=== PATIENT | female | born 1945 | race Caucasian/White ===

== ENCOUNTER → 2016-11-18 | Outpatient (CLI) | payer OTHER ==
[~2016-11-18] MED LIST: ACID REDUCER150 MG PO; AMBIEN CR6.25 MG PO; AMBIEN5 MG PO; AMLODIPINE BESY10 MG PO; ANTACID650 MG PO; ANTIVERT25 MG PO; APLISOL5 TUB UNIT ID; ATIVAN1 MG PO; Ativan PO; BUDEPRION XL150 MG PO; BYSTOLIC10 MG PO; BYSTOLIC5 MG PO; CALCITRIOL0.25 MCG PO; CALCIUM ACETAT667 MG PO; CARDURA2 M1 PO; CATAPRES0.2 MG PO; CEFTIN250 MG PO; CELEXA40 MG PO; CITALOPRAM HBR40 M1 PO; CLONAZEPAM0.25 MG PO; COLACE100 MG PO; CONSTULOSE10 GM/15 M PO; CORTIZONE-10 PL57 GM TP; CORTIZONE-1028 GM TP; COUMADIN1 MG PO; CRESTOR20 MG PO; Cardura PO; DELFLEX W/1.53000 ML PD; DICYCLOMINE HCL20 MG PO; DUONEB3 ML IH; EDLUAR5 MG SL; ELAVIL25 MG PO; ESCITALOPRAM OX10 MG PO; FLAGYL500 MG PO; FLEET MINERAL133 ML PR; FLORANEX GRANU1 EACH PO; FLORASTOR250 MG PO; FOLBEE PLUS TABL5 M1 PO; FOLBEE PLUS TABL5 MG PO; GABAPENTIN100 MG PO; GABAPENTIN300 MG PO; GEMFIBROZIL600 MG; GEMFIBROZIL600 MG PO; GENTAMICIN SULF30 GM TP; HEPARIN LO IV; HYDRALAZINE HC100 M1 PO; K-DUR20 MEQ PO; KEFLEX500 MG PO; KLOR-CON 1010 ME1 PO; LASIX40 MG PO; LEVAQUIN500 MG PO; LEVOFLOXACIN250 MG PO; LEVOFLOXACIN500 MG PO; LIDOCAINE700 MG TD; LISINOPRIL20 MG PO; LO-DOSE ASPIRIN81 M2 PO; LORAZEPAM0.5 MG PO; LORAZEPAM1 MG PO; LOW DOSE ASPIRI81 M1 PO; LYRICA100 MG PO; METOPROLOL TAR100 MG PO; NABI650T PO; NEPHRO-VITE,1 TABLET PO; NIFEDICAL XL60 MG PO; NIFEDIPINE ER30 M1 PO; NIFEDIPINE ER30 MG PO; NIFEDIPINE ER60 M1 PO; NIFEDIPINE ER60 MG PO; NYSTATIN100000 UN1 PO; Nephro-Vite,Rena-Vit PO; ONDANSETRON ODT4 MG PO; OXAYDO5 MG PO; OXYCODONE HCL10 MG PO; OXYCODONE HCL5 MG PO; PAIN RELIEF650 MG PO; PANTOPRAZOLE SO40 MG PO; PERCOCET 5/31 TABLET PO; PHENERGAN12.5 M1 PO; PLAVIX75 MG PO; PREDNISONE10 MG PO; PREDNISONE20 MG PO; PRILOSEC40 MG PO; PROAIR HFA8.5 GM IH; PROCARDIA XL60 MG PO; PROMETHAZINE HC25 M1 PO; PROMETHAZINE12.5 M1 PO; PROTONIX IV40 MG IV; PROTONIX20 MG PO; PROTONIX40 MG PO; Pepcid PO; Phoslo PO; Procardia XL,Adalat PO; Protonix PO; RANITIDINE HCL150 M1 PO; RANITIDINE HCL150 MG PO; RENAGEL800 MG PO; RENAL MULTIVIT PO; RENVELA800 MG PO; REQUIP0.25 MG PO; REQUIP0.5 MG PO; REQUIP1 MG PO; REQUIP2 MG PO; REQUIP3 MG PO; ROPINIROLE HCL0.5 MG PO; ROPINIROLE HCL2 MG PO; ROXICET 5-3251 EACH PO; SENNA PLUS TAB1 EACH PO; SENNA-DOCUSATE1 EAC1 PO; SEROQUEL12.5 MG PO; SODIUM BICARBO325 M1 PO; SODIUM BICARBO325 MG PO; STOOL SOFTENER100 M1 PO; Sodium Bicarbonate PO; TYLENOL REGULA325 MG PO; TYLENOL WITH C1 EACH PO; ULTRAM50 MG PO; VELPHORO500 MG PO; VENOFER100 MG/51 IV; VENTOLIN HFA18 GM IH; VERAPAMIL HCL120 MG PO; VITAMIN D2000 INTUN PO; VITAMIN D250000 UNIT PO; VITAMIN D400 UNIT; Vancocin Oral Solution PO; Vitamin D, Drisdol PO; WARFARIN SODIU2.5 MG PO; XANAX0.5 MG PO; ZANTAC150 MG PO; ZESTRIL40 MG PO; ZOFRAN ODT4 MG PO; ZOFRAN ODT8 MG PO; ZOFRAN4 MG PO; ZOFRAN8 MG PO; ZOLOFT50 M1 PO; ZOLPIDEM TARTRAT5 MG PO; ZUPLENZ4 MG PO; [UNRECOGNIZED DRUG - OTHER] IV
== END | disposition designated cancer center or children's hospital (05) ==
LOC: MRI 12:49 → RAD 13:30 → MRI 13:30
DX: I63.8 Other cerebral infarction (principal)
CPT/HCPCS: 70551

== ENCOUNTER → 2016-11-18 | Outpatient (CLI) | payer OTHER ==
[~2016-11-18] MED LIST changes: +B COMPLEX #11 EACH PO; +BISAC-EVAC10 MG PR; +CATAPRES0.1 MG PO; +COUMADIN4 MG PO; +COZAAR100 MG PO; +EPOGEN,PRO2000 UNITS IV; +EPOGEN,PRO3000 UNITS IV; +FIBER-TABS625 MG PO; +HEPARIN SO1000 UNIT1 IV; +LAXATIVE5 M1 PO; +LEXAPRO10 MG PO; +LIDODERM 5% P1 PATCH TD; +LIPITOR80 MG PO; +NEURONTIN100 MG PO; +NORVASC10 MG PO; +SENNA8.6 MG PO; +VITAMIN D2000 UNIT PO; +ZYRTEC5 MG PO
== END | disposition designated cancer center or children's hospital (05) ==
LOC: RAD 14:26
DX: R41.82 Altered mental status, unspecified (principal); Z86.73 Personal history of transient ischemic attack (TIA), and cerebral infarction without residual deficits
CPT/HCPCS: 70450

== ENCOUNTER 2016-11-24 16:55 | Inpatient (IN) | payer OTHER ==
[~2016-11-24] VITALS: Ht 165.1 cm; Wt 57.5 kg
[~2016-11-24 16:55] MED LIST changes: -B COMPLEX #11 EACH PO; -BISAC-EVAC10 MG PR; -CATAPRES0.1 MG PO; -COUMADIN4 MG PO; -COZAAR100 MG PO; -EPOGEN,PRO2000 UNITS IV; -EPOGEN,PRO3000 UNITS IV; -FIBER-TABS625 MG PO; -HEPARIN SO1000 UNIT1 IV; -LAXATIVE5 M1 PO; -LEXAPRO10 MG PO; -LIDODERM 5% P1 PATCH TD; -LIPITOR80 MG PO; -NEURONTIN100 MG PO; -NORVASC10 MG PO; -SENNA8.6 MG PO; -VITAMIN D2000 UNIT PO; -ZYRTEC5 MG PO
[2016-11-24 18:19] LABS: HEMATOCRIT 32.5 % (36.0-46.0); MCH 29.4 PG (29.0-34.0); MCV 91.8 FL (83-99); RBC DIS.WIDTH-CV 15.1 % (11.8-14.6); RBC DIS.WIDTH-SD 49.3 % (39-53); RED BLOOD COUNT 3.54 M/uL (3.80-5.20)
[2016-11-24 18:32] LABS: TROP-I INTERPRETATION NEGATIVE; TROPONIN-I 0.04 ng/mL (0.0-0.30)
[2016-11-24 18:37] LABS: CHLORIDE 102 mEq/L (99-109); POTASSIUM 4.3 mEq/L (3.7-5.4); SODIUM 141 mEq/L (136-147)
[2016-11-24 18:38] LABS: PROTHROMBIN TIME 43.5 (9.2-11.2); PTT 50.6 (25-32)
[2016-11-24 18:43] LABS: GFR ESTIMATE (CALCULATED) 8 mL/min/
[2016-11-24 18:44] LABS: INTER. NORMALIZED RATIO 4.1; UREA NITROGEN (BUN) 33 mg/dL (9-23)
[2016-11-24 19:07] LABS: GLUCOSE 112 mg/dL (70-99)
[2016-11-24] MEDS ORDERED: COUMADIN4 MG PO (19:24)
[2016-11-24] MEDS ORDERED: CATAPRES0.1 MG PO (19:25)
[2016-11-24] MEDS ORDERED: ZYRTEC5 MG PO (19:25)
[2016-11-24] MEDS ORDERED: CONSTULOSE10 GM/15 M PO (19:25)
[2016-11-24 19:26] LABS: PLATELET COUNT 97 K/uL (156-360)
[2016-11-24] MEDS ORDERED: COZAAR100 MG PO (19:26)
[2016-11-24] MEDS ORDERED: NORVASC10 MG PO (19:26)
[2016-11-24] MEDS ORDERED: PERCOCET 5/31 TABLET PO ×2 (19:27→19:28)
[2016-11-24] MEDS ORDERED: BISAC-EVAC10 MG PR (19:27)
[2016-11-24] MEDS ORDERED: RENVELA800 MG PO (19:28)
[2016-11-24] MEDS ORDERED: EPOGEN,PRO3000 UNITS IV (19:28)
[2016-11-24] MEDS ORDERED: EPOGEN,PRO2000 UNITS IV (19:29)
[2016-11-24] MEDS ORDERED: FIBER-TABS625 MG PO (19:29)
[2016-11-24] MEDS ORDERED: K-DUR20 MEQ PO (19:29)
[2016-11-24] MEDS ORDERED: HEPARIN SO1000 UNIT1 IV (19:30)
[2016-11-24] MEDS ORDERED: VITAMIN D2000 UNIT PO ×2 (19:31→19:34)
[2016-11-24] MEDS ORDERED: LAXATIVE5 M1 PO (19:31)
[2016-11-24] MEDS ORDERED: SENNA8.6 MG PO (19:32)
[2016-11-24] MEDS ORDERED: TYLENOL REGULA325 MG PO (19:32)
[2016-11-24] MEDS ORDERED: LIPITOR80 MG PO (19:32)
[2016-11-24] MEDS ORDERED: COLACE100 MG PO (19:32)
[2016-11-24] MEDS ORDERED: B COMPLEX #11 EACH PO (19:33)
[2016-11-24] MEDS ORDERED: LEXAPRO10 MG PO (19:34)
[2016-11-24] MEDS ORDERED: NABI650T PO (19:34)
[2016-11-24] MEDS ORDERED: NEURONTIN100 MG PO (19:34)
[2016-11-24] MEDS ORDERED: LIDODERM 5% P1 PATCH TD (19:35)
[2016-11-24 20:27] LABS: ADD MIUA? YES; BILIRUBIN NEGATIVE; BLOOD MODERATE; COLOR YELLOW ((YELLOW)); GLUCOSE (STRIP) NEGATIVE; KETONES NEGATIVE; LEUKOCYTES LARGE; NITRITE NEGATIVE; PROTEIN (STRIP) 100; SPECIFIC GRAVITY 1.005 (1.000-1.030); UROBILINOGEN 0.2 MG/DL (0.2-1.0)
[2016-11-24 20:43] LABS: BACTERIA RARE /HPF; EPITHELIAL CELLS 1+ /HPF; MUCUS NONE SEEN /LPF; RED BLOOD CELLS 20-30 /HPF (0-5); UCUL ADDED? NO; WHITE BLOOD CELLS 20-30 /HPF (0-5)
[2016-11-24 22:47] LABS: PERITONEAL LAVAGE APPEARANCE CLEAR; PERITONEAL LAVAGE COLOR COLORLESS
[2016-11-24 22:49] LABS: PERITONEAL LAVAGE WBC <200
[2016-11-25 07:12] LABS: INTERNAL CONTROL VALID? YES
[2016-11-25 13:47] VITALS: BP 147/65
[2016-11-25 16:45] VITALS: BP 130/64
[2016-11-25 17:25] VITALS: BP 127/62
[2016-11-25 18:54] LABS: TYPE OF FLUID PD FLUID
[2016-11-25 19:31] LABS: BODY FLUID RBC'S 8000 /MM^3 (0-100); BODY FLUID WBC'S 34 /MM^3 (0-500)
[2016-11-25 19:55] LABS: BODY FLUID EOSINOPHILS 2 % (0-25); MONO RAW COUNT 38; MONONUCLEAR WBC'S 76 %; POLY RAW COUNT 11; POLYNUCLEAR WBC'S 22 % (0-25)
[2016-11-25 20:27] VITALS: BP 137/65
[2016-11-25 21:00] VITALS: BP 144/72
[2016-11-26] VITALS: BP 122/79
[2016-11-26 04:00] VITALS: BP 143/78
[2016-11-26 07:04] LABS: ANION GAP 7 MEQ/L (2-14); CHLORIDE 104 MEQ/L (99-109); GFR ESTIMATE (CALCULATED) 8 mL/min/; GLUCOSE 84 mg/dL (70-99); POTASSIUM 4.2 MEQ/L (3.7-5.4); SAMPLE HEMOLYSIS CHECK 0; SAMPLE ICTERIC CHECK 0; SAMPLE LIPEMIA CHECK 0; SODIUM 140 MEQ/L (136-147); UREA NITROGEN (BUN) 37 mg/dL (9-23)
[2016-11-26 07:26] LABS: HEMATOLOGY COMMENT 1 REV; PLAT.SUFFICIENCY DECREASED; USER ID DLS
[2016-11-26 08:00] VITALS: BP 133/61
[2016-11-26 08:07] LABS: EOSINOPHIL COUNT 0.3 K/uL (0-0.3); HEMATOCRIT 31.9 % (36.0-46.0); LYMPHOCYTE COUNT 1.1 K/uL (1.0-2.8); MCH 29.4 PG (29.0-34.0); MCV 91.9 FL (83-99); MONOCYTE COUNT 0.4 K/uL (0-0.8); NEUTROPHIL (%) 55.6 % (45-76); NEUTROPHIL COUNT 2.2 K/uL (1.8-6.4); RBC DIS.WIDTH-CV 15.2 % (11.8-14.6); RBC DIS.WIDTH-SD 50.9 % (39-53); RED BLOOD COUNT 3.47 M/uL (3.80-5.20)
[2016-11-26 08:22] LABS: PLATELET COUNT 88 K/uL (156-360)
[2016-11-26 10:26] LABS: INTER. NORMALIZED RATIO 3.9; PROTHROMBIN TIME 41.6 (9.2-11.2)
[2016-11-26 12:15] VITALS: BP 140/64
[2016-11-26 16:00] VITALS: BP 134/64
[2016-11-26 18:54] VITALS: BP 154/67
[2016-11-27] VITALS (7 sets, daily range): BP systolic 118–160; BP diastolic 58–76
[2016-11-27 06:12] LABS: INTER. NORMALIZED RATIO 2.5
[2016-11-27 09:07] LABS: ANION GAP 6 MEQ/L (2-14); CHLORIDE 105 MEQ/L (99-109); GFR ESTIMATE (CALCULATED) 8 mL/min/; GLUCOSE 89 mg/dL (70-99); POTASSIUM 4.4 MEQ/L (3.7-5.4); SAMPLE HEMOLYSIS CHECK 0; SAMPLE ICTERIC CHECK 0; SAMPLE LIPEMIA CHECK 0; SODIUM 140 MEQ/L (136-147); UREA NITROGEN (BUN) 33 mg/dL (9-23)
[2016-11-27 11:09] LABS: HEMATOCRIT 30.8 % (36.0-46.0); MCHC 32.1 G/DL (30.0-36.0); MCV 90.3 FL (83-99); PLATELET COUNT 84 K/uL (156-360); RBC DIS.WIDTH-CV 14.8 % (11.8-14.6); RBC DIS.WIDTH-SD 48.9 % (39-53); RED BLOOD COUNT 3.41 M/uL (3.80-5.20); WHITE BLOOD COUNT 3.4 K/uL (4.1-10.2)
[2016-11-27 13:10] LABS: TYPE OF FLUID PERITONEAL
[2016-11-27 13:41] LABS: BODY FLUID RBC'S 249 /MM^3 (0-100); BODY FLUID WBC'S 5 /MM^3 (0-500); RED CELL DILUTION 1; WBC DILUTION 1; WHITE CELL RAW COUNT 9
[2016-11-27 14:33] LABS: BODY FLUID EOSINOPHILS 8 % (0-25); MONO RAW COUNT 40; MONONUCLEAR WBC'S 80 %; POLY RAW COUNT 6; POLYNUCLEAR WBC'S 12 % (0-25)
[2016-11-27 16:58] LABS: METH RESISTANT S AUREUS PCR POSITIVE (NEGATIVE)
[2016-11-27 17:01] LABS: PROBE CHECK PASS
[2016-11-28 03:37] VITALS: BP 134/63
[2016-11-28 07:26] LABS: INTER. NORMALIZED RATIO 1.9
[2016-11-28 08:16] VITALS: BP 147/66
[2016-11-28 15:23] VITALS: BP 152/69
[2016-11-28 22:44] VITALS: BP 156/58
[2016-11-29] VITALS (8 sets, daily range): BP systolic 117–137; BP diastolic 58–82
[2016-11-29 07:11] LABS: EOSINOPHIL (%) 10.4 % (0-5); EOSINOPHIL COUNT 0.4 K/uL (0-0.3); IMMATURE GRANULOCYTE (%) 0.2 % (0.0-0.7); LYMPHOCYTE COUNT 1.2 K/uL (1.0-2.8); MONOCYTE (%) 6.5 % (3-12); MONOCYTE COUNT 0.3 K/uL (0-0.8); NEUTROPHIL (%) 52.2 % (45-76); NEUTROPHIL COUNT 2.2 K/uL (1.8-6.4)
[2016-11-29 07:30] LABS: INTER. NORMALIZED RATIO 2.1; PROTHROMBIN TIME 21.5 (9.2-11.2)
[2016-11-29 07:35] LABS: ALKALINE PHOSPHATASE 169 IU/L (3-129); ANION GAP 7 MEQ/L (2-14); CHLORIDE 104 MEQ/L (99-109); GFR ESTIMATE (CALCULATED) 8 mL/min/; GLUCOSE 85 mg/dL (70-99); HEMATOCRIT 31.7 % (36.0-46.0); MCH 29.8 PG (29.0-34.0); MCHC 32.8 G/DL (30.0-36.0); MCV 90.8 FL (83-99); POTASSIUM 4.5 MEQ/L (3.7-5.4); RBC DIS.WIDTH-CV 14.7 % (11.8-14.6); RBC DIS.WIDTH-SD 48.3 % (39-53); RED BLOOD COUNT 3.49 M/uL (3.80-5.20); SAMPLE HEMOLYSIS CHECK 0; SAMPLE ICTERIC CHECK 0; SAMPLE LIPEMIA CHECK 0; SODIUM 140 MEQ/L (136-147); TOTAL BILIRUBIN 0.3 MG/DL (0.0-1.0); UREA NITROGEN (BUN) 30 mg/dL (9-23); WHITE BLOOD COUNT 4.1 K/uL (4.1-10.2)
[2016-11-29 08:32] LABS: MEAN PLAT.VOLUME 13.4 uM^3 (9.5-12.4); PLAT.SUFFICIENCY DECREASED; PLATELET COUNT 91 K/uL (156-360); USER ID STC
[2016-11-30 07:49] LABS: INTER. NORMALIZED RATIO 2.1; PROTHROMBIN TIME 21.8 (9.2-11.2)
[2016-11-30 08:15] VITALS: BP 126/59
[2016-11-30] MEDS ORDERED: LEVAQUIN500 MG PO (12:11)
== END 2016-11-30 14:09 | DRG 193 ==
LOC: EME 16:55 → 4EAST 11-25 05:31 → 5EAST 11-25 05:31 → EDOF 11-25 05:31 → 4EAST 11-25 13:42 → 5EAST 11-27 09:36
PROVIDERS: Emergency Medicine; Hospitalist; Internal Medicine Nephrology; Physician Assistant
PROC: 3E1M39Z Irrigation of Peritoneal Cavity using Dialysate, Percutaneous Approach (ICD-10-PCS; principal; 2016-11-25)
DX: J18.9 Pneumonia, unspecified organism (principal); N18.6 End stage renal disease; G93.40 Encephalopathy, unspecified; I12.0 Hypertensive chronic kidney disease with stage 5 chronic kidney disease or end stage renal disease; I69.354 Hemiplegia and hemiparesis following cerebral infarction affecting left non-dominant side; I48.0 Paroxysmal atrial fibrillation; Y95 Nosocomial condition; E78.5 Hyperlipidemia, unspecified; G25.81 Restless legs syndrome; G89.4 Chronic pain syndrome; K21.9 Gastro-esophageal reflux disease without esophagitis; Z99.2 Dependence on renal dialysis; Z79.01 Long term (current) use of anticoagulants; Z85.51 Personal history of malignant neoplasm of bladder; Z87.891 Personal history of nicotine dependence
CPT/HCPCS: 70450; 70551; 71020; 80048; 80053; 80202; 81003; 84443; 84484; 85025; 85027; 85610; 85730; 87070; 87075; 87086; 87205; 87449; 87502; 87641; 89051; 93005; 93971; 99202; 99281; 99285; J1644; J1956; J3370; J7030

== ENCOUNTER 2017-05-28 06:44 | Day surgery (SDC) | payer OTHER ==
[~2017-05-28] VITALS: Ht 160 cm; Wt 54.1 kg
[~2017-05-28 06:44] MED LIST changes: +B COMPLEX #11 EACH PO; +BISAC-EVAC10 MG PR; +CATAPRES0.1 MG PO; +COUMADIN3 MG PO; +COUMADIN4 MG PO; +COZAAR100 MG PO; +CYMBALTA20 MG PO; +DUONEB 2.5-0.5 M3 ML AEROSOL; +EPOGEN,PRO2000 UNITS IV; +EPOGEN,PRO3000 UNITS IV; +FIBER-TABS625 MG PO; +FUROSEMIDE80 MG PO; +HEPARIN SO1000 UNIT1 IV; +ICY HOT1 EAC1 TP; +LAXATIVE5 M1 PO; +LEXAPRO10 MG PO; +LIDODERM 5% P1 PATCH TD; +LIPITOR80 MG PO; +NEURONTIN100 MG PO; +NORVASC10 MG PO; +PRAVACHOL40 MG PO; +REMERON15 M2 PO; +SENNA8.6 MG PO; +VITAMIN D2000 UNIT PO; +VITAMIN D31000 UNI2 PO; +ZYRTEC5 MG PO
[2017-05-28 07:07] VITALS: BP 138/66
[2017-05-28 07:49] LABS: INTER. NORMALIZED RATIO 1.4
[2017-05-28 07:50] LABS: EOSINOPHIL (%) 3.7 % (0-5); EOSINOPHIL COUNT 0.3 K/uL (0-0.3); HEMATOCRIT 36.3 % (36.0-46.0); IMMATURE GRANULOCYTE (%) 0.2 % (0.0-0.7); INSTRUMENT ABS NEUTROPHIL CT 5.1 K/uL; LYMPHOCYTE COUNT 2.2 K/uL (1.0-2.8); MCH 28.1 PG (29.0-34.0); MCHC 31.4 G/DL (30.0-36.0); MCV 89.4 FL (83-99); MEAN PLAT.VOLUME 11.9 uM^3 (9.5-12.4); MONOCYTE (%) 6.8 % (3-12); MONOCYTE COUNT 0.6 K/uL (0-0.8); NEUTROPHIL (%) 62.5 % (45-76); NEUTROPHIL COUNT 5.1 K/uL (1.8-6.4); PLATELET COUNT 185 K/uL (156-360); RBC DIS.WIDTH-CV 15.2 % (11.8-14.6); RBC DIS.WIDTH-SD 49.3 % (39-53); RED BLOOD COUNT 4.06 M/uL (3.80-5.20); WHITE BLOOD COUNT 8.2 K/uL (4.1-10.2)
[2017-05-28 08:21] LABS: ANION GAP 12 MEQ/L (2-14); CHLORIDE 96 MEQ/L (99-109); GFR ESTIMATE (CALCULATED) 8 mL/min/; GLUCOSE 99 mg/dL (70-99); POTASSIUM 3.1 MEQ/L (3.7-5.4); SAMPLE HEMOLYSIS CHECK 0; SAMPLE ICTERIC CHECK 0; SAMPLE LIPEMIA CHECK 0; SODIUM 136 MEQ/L (136-147); UREA NITROGEN (BUN) 22 mg/dL (9-23)
== END 2017-05-28 11:50 ==
LOC: SDC 06:44 → 2EASTP 06:45 → SDC 09:17 → 2EASTP 11:50
PROVIDERS: Surgery
DX: T85.611A Breakdown (mechanical) of intraperitoneal dialysis catheter, initial encounter (principal); N18.6 End stage renal disease; Z99.2 Dependence on renal dialysis; Z79.01 Long term (current) use of anticoagulants
CPT/HCPCS: 80048; 85025; 85610; 93005; C1750; G0378; J0690; J1644; J2250; J2405; J7040